=== PATIENT | female | born 1995 | race American Indian/Alaskan Native ===

== ENCOUNTER 2017-11-10 18:29 | Emergency (ER) | payer BC ==
[2017-11-10 18:43] VITALS: RESP 18; BMI 22.8
[2017-11-10] MEDS ORDERED: Sodium Chloride 0.9% 1,000 ML IV STA (18:53)
--- NOTE | 2017-11-10 18:58 | ED PDOC ---
Arrival/HPI - General Chief Complaint: Chest Pain Time Seen by Provider: 11/10/17 18:36 Historian: Patient - History of Present Illness Narrative History of Present Illness (Text): 11/10/17 18:55 22 year old female presents to the Emergency department complaining of chest pain for 1 month that recently worsened. Pain is described as pressure and burning that is worsened with deep breaths and radiates to the back. Patient also complains of coughing some nights. LNMP was October 20. Patient denies any fever, chills, shortness of breath, nausea, vomiting, diarrhea, urinary symptoms , neck pain, headache, dizziness, or any other complaints. Time/Duration: Other (1 month) Symptom Onset: Gradual Symptom Course: Unchanged Quality: Pressure, Burning Context: Home Past Medical History - Provider Review Nursing Documentation Reviewed: Yes Family/Social History - Physician Review Nursing Documentation Reviewed: Yes Family/Social History: Unknown Family HX Allergies/Home Meds Allergies/Adverse Reactions: Allergies No Known Allergies Allergy (Unverified 11/10/17 18:53) Review of Systems - Review of Systems Constitutional: absent: Fevers, Night Sweats Respiratory: Cough. absent: SOB Cardiovascular: Chest Pain Gastrointestinal: absent: Diarrhea, Nausea, Vomiting Genitourinary Female: absent: Dysuria Musculoskeletal: absent: Neck Pain Neurological: absent: Headache, Dizziness Physical Exam Vital Signs Reviewed: Yes Vital Signs Temp Pulse Resp BP Pulse Ox 11/10/17 21:40 98.3 F 72 18 105/54 L 100 11/10/17 21:33 98.3 F 72 18 105/54 L 100 11/10/17 18:42 98.5 F 74 18 102/56 L 99 Temperature: Afebrile Blood Pressure: Hypotensive Pulse: Regular Respiratory Rate: Normal Appearance: Positive for: Well-Appearing, Non-Toxic, Comfortable Pain Distress: None Mental Status: Positive for: Alert and Oriented X 3 - Systems Exam Head: Present: Atraumatic, Normocephalic Pupils: Present: PERRL Extroacular Muscles: Present: EOMI Conjunctiva: Present: Normal Mouth: Present: Moist Mucous Membranes Neck: Present: Normal Range of Motion Respiratory/Chest: Present: Clear to Auscultation, Good Air Exchange. No: Respiratory Distress, Accessory Muscle Use Cardiovascular: Present: Regular Rate and Rhythm, Normal S1, S2. No: Murmurs Abdomen: Present: Tenderness (epigastric tenderness). No: Distention, Peritoneal Signs Back: Present: Normal Inspection Upper Extremity: Present: Normal Inspection. No: Cyanosis, Edema Lower Extremity: Present: Normal Inspection. No: Edema Neurological: Present: GCS=15, CN II-XII Intact, Speech Normal Skin: Present: Warm, Dry, Normal Color. No: Rashes Psychiatric: Present: Alert, Oriented x 3, Normal Insight, Normal Concentration Medical Decision Making ED Course and Treatment: 11/10/17 19:00 Impression: 22 year old female presents to the Emergency department complaining of chest pain for 1 month. Plan: -- Chest xray -- EKG -- Urinalysis -- Labs -- Protonix, Sodium Chloride IV fluids -- Reassess and disposition Progress Notes: 11/14/17 23:03 pt with epigastric ttp, no ekg changes, cxr neg as read by me. suspect abdominal etiology. pain improved in emergency room pt advsied outp tfu and return precautions. - Lab Interpretations Lab Results: 11/10/17 19:25 11/10/17 19:25 Lab Results 11/10/17 19:40: Urine Color Colorless, Urine Appearance Clear, Urine pH 7.5, Ur Specific [place] 1.010, Urine Protein Negative, Urine Glucose (UA) Negative, Urine Ketones Negative, Urine Blood Negative, Urine Nitrate Negative, Urine Bilirubin Negative, Urine Urobilinogen 0.2, Ur Leukocyte Esterase Negative, Urine HCG, Qual Negative 11/10/17 19:25: Sodium 143, Potassium 4.0, Chloride 105, Carbon Dioxide 28, Anion Gap 14, BUN 10, Creatinine 0.8, Est GFR ( Amer) > 60, Est GFR (Non- Af Amer) > 60, Random Glucose 100, Calcium 9.5, Total Bilirubin < 0.1 L, AST 19 , ALT 15, Alkaline Phosphatase 44, Total Protein 7.2, Albumin 4.2, Globulin 3.0 , Albumin/Globulin Ratio 1.4, Lipase 52 11/10/17 19:25: PT 11.9, INR 1.04, APTT 29.7 11/10/17 19:25: WBC 6.7, RBC 4.47, Hgb 12.8, Hct 37.5, MCV 83.9, MCH 28.6, MCHC 34.1, RDW 14.1, Plt Count 259, MPV 10.1, Gran % 38.2 L, Lymph % (Auto) 45.3 H, [place] % (Auto) 8.8 H, Eos % (Auto) 7.3 H, Baso % (Auto) 0.4, Gran # 2.57, Lymph # (Auto) 3.1, [place] # (Auto) 0.6, Eos # (Auto) 0.5, Baso # (Auto) 0.03 - RAD Interpretation Radiology Orders: 11/10/17 18:54 CXR [CHEST TWO VIEWS (PA/LAT)] [RAD] Stat - Medication Orders Current Medication Orders: Discontinued Medications Sodium Chloride (Sodium Chloride 0.9%) 1,000 mls @ 1,000 mls/hr IV .Q1H STA Stop: 11/10/17 19:52 Last Admin: 11/10/17 19:50 Dose: 1,000 mls/hr eMAR Start Stop Document 11/10/17 19:50 SS (Rec: 11/10/17 19:50 SS [id number]) Intravenous Solution Start Date 11/10/17 Start Time 19:40 End Date 11/10/17 End time 20:40 Total Infusion Time 60 Pantoprazole Sodium (Protonix Inj) 40 mg IVP STAT STA Stop: 11/10/17 18:54 Last Admin: 11/10/17 20:19 Dose: 40 mg IVP Administration Document 11/10/17 20:19 HI (Rec: 11/10/17 20:19 HI [id number]) Charges for Administration # of IVP Administrations 1 - Scribe Statement The provider has reviewed the documentation as recorded by the Stephanie Garnett Provider Scribe Attestation: All medical record entries made by the Scribalexy were at my direction and personally dictated by me. I have reviewed the chart and agree that the record accurately reflects my personal performance of the history, physical exam, medical decision making, and the department course for this patient. I have also personally directed, reviewed, and agree with the discharge instructions and disposition. Disposition/Present on Arrival - Present on Arrival Any Indicators Present on Arrival: No - Disposition Have Diagnosis and Disposition been Completed?: Yes Diagnosis: Chest pain Disposition: HOME/ ROUTINE Disposition Time: 21:00 Condition: STABLE Discharge Instructions (ExitCare): Chest Pain, Acute Abdomen (Belly Pain), Chest Pain (ED) Additional Instructions: please follow up with your doctor/clinic and specialists. return to er with worsening symptoms or concerns. Prescriptions: Famotidine [Pepcid] 20 mg PO DAILY #20 tab Referrals: [facility] [Outside] - [place] up with [place] [facility] [place] - Follow up with primary [facility], [Non-Staff] - Follow up with primary Colby Vera MD [Staff Provider] - Follow up with primary Erick Hilario MD [Staff Provider] - Follow up with primary Forms: [facility] (Mongolian)
[2017-11-10 19:31] LABS: BASO # 0.03 K/mm3 (0.0-2.0); BASO % 0.4 % (0.0-3.0); EOS # 0.5 (0.0-0.7); EOS % 7.3 % (1.5-5.0); GRAN # 2.57 (1.4-6.5); GRAN % 38.2 % (50.0-68.0); HEMOGLOBIN 12.8 g/dL (12.0-16.0); LYMPH # 3.1 (1.2-3.4); LYMPH % 45.3 % (22.0-35.0); MEAN CELL VOLUME 83.9 fl (80.0-105.0); MEAN CORPUSCULAR HEMOGLOBIN 28.6 pg (25.0-35.0); MEAN CORPUSCULAR HGB CONC 34.1 g/dl (31.0-37.0); MEAN PLATELET VOLUME 10.1 fl (7.0-11.0); MONO # 0.6 (0.1-0.6); MONO % 8.8 % (1.0-6.0); RBC 4.47 10^6/uL (3.5-6.1); RED CELL DISTRIBUTION WIDTH 14.1 % (11.5-14.5); WHITE BLOOD COUNT 6.7 10^3/ul (4.5-11.0)
[2017-11-10 19:44] LABS: INR 1.04 (0.93-1.08); PARTIAL THROMBOPLASTIN TIME 29.7 Seconds (25.1-36.5); PROTHROMBIN TIME 11.9 SECONDS (9.4-12.5)
[2017-11-10 19:47] LABS: ALB/GLOB RATIO 1.4 (1.1-1.8); ALBUMIN 4.2 g/dL (3.0-4.8); ALT/SGPT 15 U/L (7-56); AST/SGOT 19 U/L (14-36); BLOOD UREA NITROGEN 10 mg/dL (7-21); CALCIUM 9.5 mg/dL (8.4-10.5); GFR AFRICAN-AMERICAN > 60; GFR NON-AFRICAN AMERICAN > 60; LIPASE 52 U/L (23-300)
[2017-11-10 19:48] LABS: PH,URINE 7.5 (4.7-8.0); URINE BILIRUBIN NEGATIVE (NEGATIVE); URINE BLOOD NEGATIVE (NEGATIVE); URINE GLUCOSE (UA) NEGATIVE (NEGATIVE); URINE LEUKOCYTE ESTERASE NEGATIVE Leu/uL (NEGATIVE); URINE PROTEIN NEGATIVE mg/dL (<30 mg/dL); URINE UROBILINOGEN 0.2 E.U./dL (<1 E.U./dL)
[2017-11-10 19:50] LABS: URINE APPEARANCE CLEAR (CLEAR); URINE COLOR COLORLESS (YELLOW)
[2017-11-10 19:51] LABS: HCG,QUALITATIVE URINE NEGATIVE (NEGATIVE)
[2017-11-10 21:34] VITALS: BP 105/54; PULSE 72; TEMP 98.3; O2SAT 100
--- NOTE | 2017-11-11 08:05 | RAD ---
HISTORY: cp/abd pain COMPARISON: No prior. TECHNIQUE: Chest PA and lateral FINDINGS: LUNGS: No active pulmonary disease. PLEURA: No significant pleural effusion identified. No pneumothorax apparent. CARDIOVASCULAR: Normal. OSSEOUS STRUCTURES: No significant abnormalities. VISUALIZED UPPER ABDOMEN: Normal. OTHER FINDINGS: None. IMPRESSION: No active disease.
--- NOTE | 2017-11-11 10:46 | CARD ---
APPROVED REPORT EKG Measurement Heart [id number] <Conclusion> Normal sinus rhythm with sinus arrhythmia Normal ECG
== END 2017-11-10 21:40 | disposition home or self-care (01) ==
LOC: ED 18:29
DX: R07.9 Chest pain, unspecified (principal)
CPT/HCPCS: 71046; 80053; 81003; 83690; 84703; 85025; 85610; 85730; 93005; 96361; 96374; 99284; C9113; J7030